=== PATIENT | female | born 1990 | race African-American/Black ===

== ENCOUNTER 2018-04-13 08:32 | Emergency (ER) | payer OTHER ==
[~2018-04-13] VITALS: Wt 133.8 kg
[2018-04-13 08:35] VITALS: BP 132/82; PULSE 89; RESP 18
[2018-04-13] MEDS ORDERED: PHEN-537 PO (09:55)
[2018-04-13] MEDS ORDERED: NITR-58 PO (09:55)
--- NOTE | 2018-04-13 10:38 | ERD ---
ER Documentation Chief Complaint Chief Complaint DYSURIA HPI 28-year-old female patient with no significant past medical history presents to the ED complaining of dysuria that started about 1.5 weeks ago. Patient reports that she started to get burning with urination after using K-Y jelly with her partner, states that she only has one sexual partner. Denies any concerns for STDs. Denies any vaginal discharge. Denies any vaginal itching. Reports that she also noticed some irregular menstruation bleeding. Reports that her last menstruation was on March 31, 2017 however she started to notice some vaginal bleeding currently. Denies any fever, chills, nausea, vomiting, diarrhea, neck stiffness. ROS All systems reviewed and are negative except as per history of present illness. Medications Home Meds Active Scripts Phenazopyridine Hcl* (Pyridium*) 100 Mg Tab, 100 MG PO TID PRN for URINARY PAIN, #8 TAB Prov:KALEE WHEELER PA-C 04/13/18 Nitrofurantoin Monohyd Macrocr* (Macrobid*) 100 Mg Capsr, 100 MG PO BID for 7 Days, CAP Prov:KALEE WHEELER PA-C 04/13/18 Allergies Allergies: Coded Allergies: Penicillins (Verified Allergy, Unknown, rashes, 04/13/18) Sulfa (Sulfonamide Antibiotics) (Verified Allergy, Unknown, 04/13/18) PMhx/Soc Medical and Surgical Hx: pt denies Medical Hx, pt denies Surgical Hx Hx Alcohol Use: No Hx Substance Use: Yes (marijuana) Hx Tobacco Use: No Smoking Status: Current some day smoker FmHx Family History: No diabetes, No coronary disease Physical Exam Vitals Vital Signs Date Temp Pulse Resp B/P (MAP) Pulse Ox O2 O2 Flow FiO2 Time Delivery Rate 04/13/18 97.5 89 18 132/82 99 08:35 (99) Physical Exam Const: Xqi-nmo-knbswdkxw, well-nourished. In no acute distress. Head: Atraumatic, normocephalic Eyes: Normal Conjunctiva without injection. No purulent discharge. ENT: Normal external ear, nose. Moist oropharynx without tonsillar exudates. Non-erythematous pharynx. Uvula midline. No drooling. No trismus. Neck: No cervical midline tenderness. Full range of motion. No meningismus. No cervical lymphadenopathy. No JVD. Resp: Clear to auscultation bilaterally. No wheezing, rhonchi, rales, or crackles. No accessory muscle use. No retractions. Cardio: Regular rate and rhythm. No murmurs, rubs or gallops. Abd: Soft, nontender, non distended. Normal bowel sounds. No palpable masses. No rebound tenderness. No guarding. Negative McBurney's point. Negative psoas sign. Negative obturator sign. Skin: No petechiae or rashes Back: No midline tenderness. No CVA tenderness. Ext: No cyanosis, or edema. Neur: Awake and alert. Normal gait. Normal coordination. Psych: Normal Mood and Affect Results 24 hrs Laboratory Tests Test 04/13/18 09:25 04/13/18 09:27 04/13/18 10:05 Bedside Urine pH (LAB) 6.0 Bedside Urine Protein (LAB) 3+ Bedside Urine Glucose (UA) Negative Bedside Urine Ketones (LAB) 4+ Bedside Urine Blood 3+ Bedside Urine Nitrite (LAB) Negative Bedside Urine Leukocyte Esterase (L 2+ POC Beta HCG, Qualitative NEGATIVE Bedside Glucose 81 mg/dL Procedures/MDM 28-year-old female patient with no significant past medical history presents to ED complaining of dysuria and burning with urination. Patient is afebrile and nontoxic-appearing. Patient's blood pressure is 132/82. Blood Pressure Assessment: Patient's blood pressure was elevated (>120/80) but appears stable without evidence of hypertension emergency or urgency. The patient was counseled about the risks of hypertension and urged to pursue outpatient monitoring and therapy within a week with their primary care physician. Patient has a urinary tract infection. Patient was noted to have 4+ ketones urine dip. Patient was noted to drink water in the ED. Successful p.o. chal lenge noted. Low suspicion for dehydration. Patient reports that she is however drinking less water than she has before. Accu-Chek was 81. Low suspicion for ectopic , ovarian torsion, gastritis, GERD, peptic ulcer disease, cholecystitis, choledocholithiasis, cholangitis, pancreatitis, appendicitis, bowel obstruction, ileus, volvulus, nephrolithiasis, pyelonephritis, hepatitis, perforated viscus, diverticulitis, strangulated/incarcerated hernia, DKA, acute abdomen, mesenteric ischemia or other emergent conditions. Diagnosis: Dysuria Discharge medications: Pyridium, Macrobid Follow up with primary care physician in 1-2 days. Instructed patient to return to the ED sooner for any worsening symptoms. Patient's questions were answered. Patient is hemodynamically stable. Patient understood and agreed with discharge plan. Patient discharged stable. Disclaimer: Inadvertent spelling and grammatical errors are likely due to EHR/dictation software use and do not reflect on the overall quality of patient care. Also, please note that the electronic time recorded on this note does not necessarily reflect the actual time of the patient encounter. Departure Diagnosis: Primary Impression: Dysuria Condition: Stable Patient Instructions: Urinary Tract Infections in Women, Dysfunctional Uterine Bleeding Referrals: [facility] YOU HAVE RECEIVED A MEDICAL SCREENING EXAM AND THE RESULTS INDICATE THAT YOU DO NOT HAVE A CONDITION THAT REQUIRES URGENT TREATMENT IN THE EMERGENCY DEPARTMENT. FURTHER EVALUATION AND TREATMENT OF YOUR CONDITION CAN WAIT UNTIL YOU ARE SEEN IN YOUR DOCTORS OFFICE WITHIN THE NEXT 1-2 DAYS. IT IS YOUR RESPONSIBILITY TO MAKE AN APPOINTMENT FOR FOLOW-UP CARE. IF YOU HAVE A PRIMARY DOCTOR --you should call your primary doctor and schedule an appointment IF YOU DO NOT HAVE A PRIMARY DOCTOR YOU CAN CALL OUR PHYSICIAN REFERRAL HOTLINE AT IF YOU CAN NOT AFFORD TO SEE A PHYSICIAN YOU CAN CHOSE FROM THE FOLLOWING [facility] [address] [facility]. [facility] [address] [facility]. [facility] [address] [facility]. [facility] [address] [facility]. [facility] [address] [facility]. [facility]. [address] [facility]. [facility] YOU HAVE RECEIVED A MEDICAL SCREENING EXAM AND THE RESULTS INDICATE THAT YOU DO NOT HAVE A CONDITION THAT REQUIRES URGENT TREATMENT IN THE EMERGENCY DEPARTMENT. FURTHER EVALUATION AND TREATMENT OF YOUR CONDITION CAN WAIT UNTIL YOU ARE SEEN IN YOUR DOCTORS OFFICE WITHIN THE NEXT 1-2 DAYS. IT IS YOUR RESPONSIBILITY TO MAKE AN APPOINTMENT FOR FOLOW-UP CARE. IF YOU HAVE A PRIMARY DOCTOR --you should call your primary doctor and schedule and appointment IF YOU DO NOT HAVE A PRIMARY DOCTOR YOU CAN CALL OUR PHYSICIAN REFERRAL HOTLINE AT . IF YOU CAN NOT AFFORD TO SEE A PHYSICIAN YOU CAN CHOSE FROM THE FOLLOWING [facility] INSTITUTIONS: [facility] [address] [place] [address] [facility] [address] [place] [address] [facility] [address] [place] [address] [facility]ENT [facility]/SPECIALTIES RIPPER [place] [address] [facility] [address] [place] [address] OFFICE FAX , [facility] [address] [place], [place] [id number] DR[address] [facility] [facility] [address] [place] [address] [facility] [address] [facility] [address] [address] [facility] [address] [place] [address] [facility] [address] [place] [address] [phone] [address] [facility] [address] - [place] [address], [facility] [address] [address] [address] [facility]. [address], [facility] [address] [address] [address] [place], [place] [id number] [facility] Hours: 8:00 am - 5:00 pm Additional Instructions: Call your primary care doctor TOMORROW for an appointment during the next 2-3 days.See the doctor sooner or return here if your condition worsens before your appointment time. KALEE WHEELER PA-C Apr 13, 2018 10:38
== END 2018-04-13 10:26 | disposition home or self-care (01) ==
LOC: FTE 08:32
DX: R30.0 Dysuria (principal); F17.210 Nicotine dependence, cigarettes, uncomplicated
CPT/HCPCS: 81003; 81025; 82962; Z7502; 99283